=== PATIENT | female | born 1980 | race Two or more races ===

== ENCOUNTER 2017-12-21 00:35 | Emergency (ER) | payer OTHER ==
[2017-12-21 00:40] VITALS: O2SAT 97
[2017-12-21 00:54] VITALS: RESP 20; TEMP 97.8
[2017-12-21 01:05] VITALS: BP 119/67; PULSE 62
[2017-12-21 02:08] LABS: APPEARANCE,URINE Slightly Cloudy; BILIRUBIN,URINE NEGATIVE (NEGATIVE); COLOR,URINE Yellow; GLUCOSE, URINE (UA) 2+ (NEGATIVE); KETONES,URINE NEGATIVE (NEGATIVE); LEUKOCYTE ESTERASE ,URINE 1+ (NEGATIVE); NITRATE,URINE NEGATIVE (NEGATIVE); OCCULT BLOOD,URINE 2+ (NEG-TRACE); UROBILINOGEN,URINE 0.2 (0.2-1.0 EU)
[2017-12-21 02:16] LABS: ALBUMIN 3.5 gm/dl (3.4-5.0); BILIRUBIN,TOTAL 0.4 mg/dl (0.2-1.0); CALCIUM 8.4 mg/dl (8.5-10.1); CARBON DIOXIDE 27.3 mEq/L (21-32); CREATININE 0.7 mg/dl (0.60-1.00); POTASSIUM 4.2 mMol/L (3.5-5.1); TOTAL PROTEIN 7.5 gm/dl (6.4-8.2)
[2017-12-21 02:40] LABS: BACTERIA 1+ (< 1+); CRYSTALS NEGATIVE (0-3 AVE/HPF); WBC,URINE 20-30 (0-5AV/HPF)
[2017-12-21] MEDS ORDERED: SULFAMETHOXAZOLE/TRIMETHOPRI 800/160 MG PO ONE (02:47)
[2017-12-21] MEDS ORDERED: SULFAMETHOXAZOLE/TRIMETHOPRI 800/160 MG ONE (02:53)
== END 2017-12-21 03:05 | disposition home or self-care (01) | DRG 690 ==
LOC: ED 00:35
DX: N39.0 Urinary tract infection, site not specified (principal); B96.89 Other specified bacterial agents as the cause of diseases classified elsewhere
CPT/HCPCS: 36415; 80053; 81001; 82962; 84703; 87088; 87430; 99283; A9270-GY